=== PATIENT | female | born 1965 | race Caucasian/White ===

== ENCOUNTER → 2016-12-20 | Outpatient (CLI) | payer BC | LOC: MOB LAB 10:40 | PROVIDERS: ATTEND Physician Assistant Medical | DX: N30.01 Acute cystitis with hematuria (principal); R30.0 Dysuria | CPT/HCPCS: 87088 ==

== ENCOUNTER → 2017-05-06 | Outpatient (CLI) | payer BC ==
[2017-05-06 16:27] LABS: BLOOD UREA NITROGEN 13 mg/dL (7-22); BUN/CREATININE RATIO 14.44 (6-20); CALCIUM 9.2 mg/dL (8.7-10.7); EST GLOMERULAR FILTRATION > 60 (>60 ml/min/1.73m(2)); SERUM ALBUMIN 4.3 g/dL (3.5-4.8)
[2017-05-06 17:28] LABS: RED BLOOD COUNT 4.39 10^6/uL (4.20-5.40)
[2017-05-06 17:29] LABS: BASOPHILS % (AUTO) 0.2 % (0-1); EOSINOPHILS % (AUTO) 5.8 % (0-8); HEMATOCRIT 38.8 % (37.0-47.0); HEMOGLOBIN 13.6 g/dL (12.0-16.0); MEAN CORPUSCULAR HGB CONC 35.1 g/dL (33-37); MEAN CORPUSCULAR VOLUME 88.4 FL (81-99); MEAN PLATELET VOLUME 9.6 FL (7.4-12.2); MONOCYTES # (AUTO) 0.51 10*3/UL (0.3-0.8); MONOCYTES % (AUTO) 5.5 % (5-15); NEUTROPHILS # (AUTO) 6.18 10*3/UL; NEUTROPHILS % (AUTO) 66.6 % (50-80)
[2017-05-06 17:30] LABS: BASOPHILS # (AUTO) 0.02 10*3/UL; EOSINOPHILS # (AUTO) 0.54 10*3/UL; PLATELET MORPHOLOGY COMMENT NORMAL MORPHOLOGY (NORM); RBC MORPHOLOGY COMMENT NORMAL MORPHOLOGY (NORM); WBC MORPHOLOGY COMMENT NORMAL MORPHOLOGY (NORM)
[2017-05-11 07:06] LABS: KAPPA FREE LIGHT CHAINS 2.45 mg/dL (()); KAPPA/LAMBDA FLC RATIO 0.1775 (()); LAMBDA FREE LIGHT CHAINS 13.8 mg/dL (())
[2017-05-11 10:06] LABS: A/G RATIO 0.85 (()); ALP1 GLOB 0.3 g/dL (0.1-0.3); GAMMA GLOBS 2.4 g/dL (0.6-1.6); M SPIKE 1.8 g/dL (())
== END ==
LOC: LAB 15:53
PROVIDERS: ATTEND Internal Medicine
DX: C90.00 Multiple myeloma not having achieved remission (principal)
CPT/HCPCS: 36415; 80053; 83883; 84155; 84165; 85025